=== PATIENT | female | born 1960 | race Caucasian/White ===

== ENCOUNTER 2017-12-26 15:30 | Inpatient (IN) | payer OTHER ==
[~2017-12-26] VITALS: Ht 167.6 cm; Wt 95.8 kg
[~2017-12-26 15:30] MED LIST: ASPIRIN E.C. 8181 MG PO; BISOPRL PO; FISH OIL1000 MG PO; GLUCOPHAGE1000 MG PO; HCTZ PO; MEVACOR40 MG PO; MOBIC15 MG PO; NORCO 325 MG-7.1 TAB PO; VICTOZA6 MG/ML SQ; [UNRECOGNIZED DRUG - OTHER] PO
[2018-02-17] VITALS (11 sets, daily range): BP systolic 103–134; BP diastolic 50–75; PULSE 80–107; TEMP 97.6–98.7
[2018-02-18] VITALS (7 sets, daily range): BP systolic 102–143; BP diastolic 60–75; PULSE 75–99; TEMP 97.8–99.2
[2018-02-18 07:19] LABS: HEMOGLOBIN 11.3 g/dl (12.5-16.0)
[2018-02-18 07:23] LABS: HEMATOCRIT 34.4 % (37.0-47.0)
[2018-02-19 03:36] VITALS: BP 130/77; PULSE 81; TEMP 98.2
[2018-02-19] MEDS ORDERED: XARELTO10 MG PO (06:46)
[2018-02-19] MEDS ORDERED: NORCO 325 MG-7.1 TAB PO (06:46)
[2018-02-19] MEDS ORDERED: ROXICODONE 55 MG/TAB PO (06:47)
[2018-02-19] MEDS ORDERED: DULCOLAX STOOL100 MG PO (06:48)
[2018-02-19 08:11] LABS: HEMATOCRIT 33.5 % (37.0-47.0); HEMOGLOBIN 11.1 g/dl (12.5-16.0)
[2018-02-19 08:26] VITALS: BP 113/60; PULSE 83; TEMP 99.5
[2018-02-19 11:01] VITALS: BP 100/55; PULSE 70; TEMP 98.9
[2018-02-19 16:52] VITALS: BP 106/58; PULSE 78; TEMP 98.5
[2018-02-19 19:36] VITALS: BP 115/71; PULSE 80; TEMP 98.4
[2018-02-19 23:38] VITALS: BP 125/68; PULSE 84; TEMP 98.5
[2018-02-20 03:25] VITALS: BP 124/68; PULSE 80; TEMP 98.2
[2018-02-20 08:16] VITALS: BP 112/61; PULSE 91; TEMP 98.5
== END 2018-02-20 15:02 | disposition home or self-care (01) | DRG 470 ==
LOC: JCC 02-17 05:07
PROVIDERS: Orthopaedic Surgery
PROC: 0SRC0J9 Replacement of Right Knee Joint with Synthetic Substitute, Cemented, Open Approach (ICD-10-PCS; principal; 2018-02-17 07:30)
DX: M17.11 Unilateral primary osteoarthritis, right knee (principal); E78.2 Mixed hyperlipidemia; I12.9 Hypertensive chronic kidney disease with stage 1 through stage 4 chronic kidney disease, or unspecified chronic kidney disease; E11.22 Type 2 diabetes mellitus with diabetic chronic kidney disease; N18.9 Chronic kidney disease, unspecified
CPT/HCPCS: A4314; A9284; C1713; C1776; J0690; J1170; J2250; J2704; J3010; J7030

== ENCOUNTER → 2018-02-06 | Outpatient (CLI) | payer OTHER | LOC: COL.LAB 14:01 | DX: Z01.812 Encounter for preprocedural laboratory examination (principal) ==

== ENCOUNTER → 2018-06-06 | Outpatient (CLI) | payer OTHER ==
[~2018-06-06] MED LIST changes: +DULCOLAX STOOL100 MG PO; +ROXICODONE 55 MG/TAB PO; +XARELTO10 MG PO
[2018-06-06 12:19] LABS: BASO # 0.1 (0.0-0.2); BASO % 0.5 % (0.0-2.0); EOS # 0.2 (0.0-0.7); EOS % 1.9 % (0-4.0); GRAN # 7.1 (1.4-6.5); GRAN % 57.3 % (42.2-75.2); HEMATOCRIT 45.1 % (37.0-47.0); HEMOGLOBIN 14.6 g/dl (12.5-16.0); LYMPH # 4.2 (1.2-3.4); LYMPH % 33.8 % (20.0-51.0); MEAN CELL VOLUME 92 fl (80.0-100.0); MEAN CORPUSCULAR HEMOGLOBIN 30 pg (27.0-31.0); MEAN CORPUSCULAR HGB CONC 32 g/dl (33.0-37.0); MEAN PLATELET VOLUME 11.5 fl (7.4-10.4); MONO # 0.8 (0.1-0.6); MONO % 6.2 % (1.7-9.3); PLATELET COUNT 303 K/mm3 (130-400); REDCELL DISTRIBUTION WIDTH-CV 13.9 % (11.5-14.5)
[2018-06-06 12:26] LABS: ALBUMIN 4.5 gm/dL (3.5-5.0); BILIRUBIN,TOTAL 0.4 mg/dL (0.0-1.0); CALCIUM 10.2 mg/dL (8.4-10.2); CREATININE, serum 0.79 mg/dL (0.52-1.25); TOTAL PROTEIN 7.6 gm/dL (6.4-8.2)
[2018-06-06 12:27] LABS: MUCOUS Present /lpf; PH 5 (5-8); PROTHROMBIN TIME 11.4 SECONDS (9.7-12.8); SQUAMOUS EPITHELIAL 0-2 /hpf; URINE APPEARANCE Clear; URINE BACTERIA None Seen /hpf; URINE BILIRUBIN Negative (NEGATIVE); URINE BLOOD Negative (NEGATIVE); URINE COLOR Yellow; URINE GLUCOSE Negative (NEGATIVE); URINE KETONE Negative (NEGATIVE); URINE LEUKOCYTE ESTERASE Negative (NEGATIVE); URINE NITRATE Negative (NEGATIVE); URINE PROTEIN(semi-quant) Negative (NEGATIVE); URINE RBC 0-2 /hpf; URINE UROBILINOGEN Negative (NEGATIVE)
[2018-06-06 12:49] LABS: COLLECTION METHOD CLEAN CATCH
== END ==
LOC: COL.LAB 10:58
PROVIDERS: Orthopaedic Surgery
DX: Z01.812 Encounter for preprocedural laboratory examination (principal)

== ENCOUNTER → 2021-01-06 | Outpatient (CLI) | payer BC | LOC: COL.PUL 11-30 11:40 | DX: R06.02 Shortness of breath (principal); Z86.711 Personal history of pulmonary embolism ==